=== PATIENT | male | born 1950 | race Caucasian/White ===

== ENCOUNTER 2024-01-10 06:58 | Outpatient (NON) | payer MEDICARE, OTHER, SELFPAY | END 2024-01-10 06:59 | disposition home or self-care (01) | PROVIDERS: PCP Family Medicine; Visit Provider Internal Medicine Gastroenterology | DX: Z12.11 Encounter for screening for malignant neoplasm of colon (principal) | CPT/HCPCS: 88305; 88341; 88342; 88360; 88365 ==

== ENCOUNTER 2024-01-10 07:36 | Day surgery (SDC) | payer MEDICARE, OTHER, SELFPAY ==
[2023-12-09 06:12] VITALS: BMI 28.6
[2023-12-29 10:16] VITALS: BMI 28.2
--- NOTE | 2024-01-09 14:39 | PM.HPGS ---
History of Present Illness History of Present Illness Consent: Risks, benefits, and alternatives have been discussed and questions answered. Patient agrees to proceed with procedure. Chief complaint: Neoplasm screening Narrative: Jai Alexis is a 73 year old male who is referred for colon cancer screening. He has a family history of colon cancer. Review of Systems Review of Systems: All systems reviewed & are unremarkable except as noted in HPI and below PMFSH Past Medical History Medical History BMI 28.0-28.9,adult Mixed hyperlipidemia Parotitis Patella-femoral syndrome Screening for lipid disorders Screening for prostate cancer Surgical History Surgical History (Updated 01/10/24 @ 09:20 by Ian Hutton MD) H/O colonoscopy Family History Family History Other Arthralgia Breast cancer Diabetes mellitus Ovarian cancer Social History Social History Smoking status: Never smoker Alcohol intake: current Substance use: never Substance use type: does not use Living arrangements: with family Spiritual care concerns: No Meds Home Medications and Allergies Home Medications Medication Instructions Recorded Confirmed Type cinnamon bark 500 mg capsule 500 mg PO DAILY 12/01/23 01/10/24 History docosahexaenoic acid (dha)-epa 120 1 cap PO DAILY 12/01/23 12/01/23 History mg-180 mg capsule (Fish Oil) flaxseed oil 1,000 mg capsule 1,000 mg PO DAILY 12/01/23 01/10/24 History Allergies Allergy/AdvReac Type Severity Reaction Status Date / Time Penicillins Allergy Mild Hives Verified 01/10/24 08:46 Exam Resp: Auscultation: clear to auscultation bilaterally Cardio: Rate: regular rate Rhythm: regular rhythm GI: GI Palp: Yes Soft to palpation and No Tenderness to palpation present (GI) Assessment and Plan Assessment and plan (1) Colon cancer screening: Code(s): Z12.11 - Encounter for screening for malignant neoplasm of colon Status: Acute Assessment and Plan: Colonoscopy with possible biopsy or polypectomy or cautery or injection of substances.
[2024-01-10 08:48] VITALS: BP 116/81; PULSE 63; RESP 20; TEMP 36.8; O2SAT 100; BMI 27.6
[2024-01-10] MEDS: LACTATED RINGERS 1,000 ML 150 ML IV CONT (08:59)
--- NOTE | 2024-01-10 09:19 | WPDANESEPPF ---
Anes - Initial Pre Proc Eval Procedure: Operation Date: 01/10/24 10:00 Proposed Procedures p Screening Colonoscopy - Dionte Judge MD Date/Time: 01/10/24 09:19 Surgeon: Dionte Judge MD Pre Op Diagnosis: Neoplasm screening Patient Data Age: 73 Gender: M Height: 1.85 m Weight: 95.15 kg Last Vital Signs Temp 36.8 C 01/10/24 08:48 Pulse 63 01/10/24 08:48 Resp 20 01/10/24 08:48 BP 116/81 01/10/24 08:48 Pulse Ox 100 01/10/24 08:48 O2 Del Method Room Air 01/10/24 08:48 Allergies Allergy/AdvReac Type Severity Reaction Status Date / Time Penicillins Allergy Mild Hives Verified 01/10/24 08:46 Home Medications Medication Instructions Recorded Confirmed Type cinnamon bark 500 mg capsule 500 mg PO DAILY 12/01/23 01/10/24 History docosahexaenoic acid (dha)-epa 120 1 cap PO DAILY 12/01/23 12/01/23 History mg-180 mg capsule (Fish Oil) flaxseed oil 1,000 mg capsule 1,000 mg PO DAILY 12/01/23 01/10/24 History Patient hx anesthesia problems: none Family hx anesthesia problems: none Results Review: All pre-operative results and documents have been reviewed as part of the pre-operative evaluation. ON LICENSE OF [facility] Past Medical History Medical History BMI 28.0-28.9,adult Mixed hyperlipidemia Parotitis Patella-femoral syndrome Screening for lipid disorders Screening for prostate cancer Surgical History Surgical History (Updated 01/10/24 @ 09:20 by Ian Hutton MD) H/O colonoscopy Family History Family History Other Arthralgia Breast cancer Diabetes mellitus Ovarian cancer Social History Social History Smoking status: Never smoker Alcohol intake: current Substance use: never Substance use type: does not use Living arrangements: with family Spiritual care concerns: No Anes - Eval Final PreProcedure Day of Procedure 01/10/24 09:19 Patient weight: normal Heart: regular rate and rhythm Lungs: clear to auscultation Airway: Mallampati scale class II Neurological: alert and oriented Last oral intake: >/= 8 hours ASA classification: I Emergent: no Anesthetic plan: proceed Anesthesia type and monitoring: general GIVS and standard monitoring Results Review: All pre-operative results and documents have been reviewed as part of the pre-operative evaluation. Informed Consent: The patient's anesthetic plan and its attendant risks and benefits were discussed with the patient/family/POA. Questions were solicited and answers provided to the satisfaction of the patient/family/POA.
--- NOTE | 2024-01-10 09:53 | SUR.OPER ---
resulotion clip applied lot [id number] expires 07/13/2026
[2024-01-10 09:55] VITALS: BP 109/73; PULSE 57; RESP 16; O2SAT 99
[2024-01-10 10:05] VITALS: BP 113/76; PULSE 57; RESP 18; O2SAT 98
[2024-01-10 10:15] VITALS: BP 117/80; PULSE 61; RESP 18; O2SAT 98
--- NOTE | 2024-01-10 10:41 | WPDANESPN ---
Anes - Prog Note Post-Op Date/Time: 01/10/24 10:41 Cardiovascular status: normal Respiratory status: normal Airway patency: baseline Mental status: baseline Post-Op hydration status: normal Vital Signs: Last Vital Signs Temp 36.8 C 01/10/24 08:48 Pulse 61 01/10/24 10:15 Resp 18 01/10/24 10:15 BP 117/80 01/10/24 10:15 Pulse Ox 98 01/10/24 10:15 O2 Del Method Room Air 01/10/24 10:15 Pain Score (VAS): 0/10 I/O: Intake & Output 01/09/24 01/10/24 01/10/24 23:59 07:59 15:59 Intake Total 350 Balance 350 Patient Feedback: Patient satisfied with anesthetic care.
== END 2024-01-10 10:21 | disposition home or self-care (01) ==
PROVIDERS: PCP Family Medicine; Visit Provider Internal Medicine Gastroenterology
PROC: 0DJD8ZZ Inspection of Lower Intestinal Tract, Via Natural or Artificial Opening Endoscopic (ICD-10-PCS; CPT 45378; principal; 2024-01-10 10:00)
DX: Z12.11 Encounter for screening for malignant neoplasm of colon (principal); D12.5 Benign neoplasm of sigmoid colon; K57.30 Diverticulosis of large intestine without perforation or abscess without bleeding; K64.8 Other hemorrhoids
CPT/HCPCS: 45385